=== PATIENT | male | born 1955 | race Caucasian/White ===

== ENCOUNTER → 2016-12-12 | Outpatient (CLI) | payer BC ==
--- NOTE | 2016-12-12 23:15 | US ---
EXAMINATION TYPE: US kidneys/renal and bladder DATE OF EXAM: 12/12/2016 COMPARISON: NONE CLINICAL HISTORY: 61-year-old male with R31.9 Hematuria. Patient states having macroscopic hematuria for 1 week, then went away. No pain. TECHNIQUE: Multiple sonographic images of the kidneys and bladder were obtained. FINDINGS: Right Kidney: 11.6 x 6.4 x 5.5 cm Left Kidney: 11.7 x 6.1 x 6.4 cm No hydronephrosis on either side. The prostate gland appears enlarged with possible calcifications indenting the posterior bladder base . Both ureteral jets are visualized. Post Void Residual Volume: 260.2 mL, abnormal. IMPRESSION: 1. No hydronephrosis. 2. Prostate gland appears enlarged with calcifications slightly indenting the posterior bladder base. Correlate with physical exam findings, PSA values, and patient's symptoms. 3. Postvoid residual bladder volume of 260 ml, which is markedly elevated and compatible with urinary retention.
== END | disposition home or self-care (01) ==
LOC: RADUSMAIN 15:44
PROVIDERS: ATTEND Family Medicine
DX: R31.9 Hematuria, unspecified (principal)
CPT/HCPCS: 76770

== ENCOUNTER → 2018-01-17 | Outpatient (CLI) | payer BC ==
--- NOTE | 2018-01-17 15:06 | CT ---
EXAMINATION TYPE: CT cervical spine wo con DATE OF EXAM: 01/17/2018 COMPARISON: 02/27/2015 HISTORY: Osteoarthosis CT DLP: 619.[address] of the cervical spine was performed with bone and soft tissue window settings submitted . Coronal and sagittal reconstruction is obtained. C2-3: Mild degenerative disc space narrowing. Mild posterocentral disc bulge. No herniation protrusio n or central stenosis. Foramina are patent bilaterally. C3-4: Moderate degenerative disc space narrowing. Posterior disc bulge with encapsulating spur result ing in disc endplate complex. Mild effacement ventral thecal sac. No evidence for herniation protrusi on. Visualized neural foramina are patent bilaterally. C4-5: Moderate to severe degenerative disc space narrowing. Posterior disc bulge. Mild ventral and do rsal spondylosis. No evidence for herniation or protrusion. Degenerative change cervical apophyseal j oints with mild left-sided foraminal encroachment. C5-6:Moderate to severe degenerative disc space narrowing. Posterior disc bulge. Mild ventral and elizabeth federico spondylosis. No evidence for herniation or protrusion. Degenerative change cervical apophyseal jasen ints with mild left-sided foraminal encroachment. C6-7: Severe degenerative disc space narrowing. Posterior disc bulge with encapsulating spur resultin g in disc endplate complex. Mild effacement ventral thecal sac. C7-T1: Within normal limits. Alignment is within normal limits. There is no evidence for fracture or subluxation. IMPRESSION: 1. Multilevel degenerative disc disease and spondylosis. Disc bulging as outlined above as well as fo raminal encroachment.
== END | disposition home or self-care (01) ==
LOC: RADCTMAIN 14:20
PROVIDERS: ATTEND Family Medicine
DX: M50.21 Other cervical disc displacement, high cervical region (principal); M50.30 Other cervical disc degeneration, unspecified cervical region; M47.812 Spondylosis without myelopathy or radiculopathy, cervical region; G89.4 Chronic pain syndrome
CPT/HCPCS: 72125

== ENCOUNTER → 2019-03-17 | Outpatient (CLI) | payer BC ==
--- NOTE | 2019-03-18 11:11 | US ---
EXAMINATION TYPE: US carotid duplex BILAT DATE OF EXAM: 03/17/2019 COMPARISON: NONE CLINICAL HISTORY: I25.10 Atherosclerotic heart disease of [place]. EXAM MEASUREMENTS: RIGHT: Peak Systolic Velocity (PSV) cm/sec ----- Right CCA: 70.3 ----- Right ICA: 82.2 ----- Right ECA: 95.2 ICA/CCA ratio: 1.2 RIGHT: End Diastole cm/sec ----- Right CCA: 21.5 ----- Right ICA: 33.0 ----- Right ECA: 18.7 LEFT: Peak Systolic Velocity (PSV) cm/sec ----- Left CCA: 73.2 ----- Left ICA: 78.2 ----- Left ECA: 67.6 ICA/CCA ratio: 1.1 LEFT: End Diastole cm/sec ----- Left CCA: 19.8 ----- Left ICA: 30.3 ----- Left ECA: 16.9 VERTEBRALS (direction of flow): Right Vertebral: Antegrade Left Vertebral: Antegrade Rhythm: Normal No elevated velocities, no significant stenosis. IMPRESSION: Mild degree of grayscale atheromatous plaquing with no sonographically evident hemodynam ically significant stenosis within either visualized carotid arterial system. Criteria for Assigning % of Stenosis / Diameter reduction (Estimation based on the indirect measurements of the internal carotid artery velocities (ICA PSV). 1. Normal (no stenosis)=ICA PSV < 125 cm/s: ratio < 2.0: ICA EDV<40 cm/s. 2. Less than 50% stenosis=ICA PSV < 125 cm/s: ratio < 2.0: ICA EDV<40 cm/s. 3. 50 to 69% stenosis=ICA PSV of 125 to 230 cm/s: ration 2.0 ? 4.0: ICA EDV 40-100 cm/s. 4. Greater than 70% stenosis to near occlusion= ICA PSV > 230 cm/s: ratio > 4.0: ICA EDV > 100 cm/s. 5. Near occlusion= ICA PSV velocities may be low or undetectable: variable ratio and ICA EDV. 6. Total occlusion=unable to detect flow.
== END | disposition home or self-care (01) ==
LOC: RADUSWWP 13:06
PROVIDERS: ATTEND Family Medicine
DX: I65.22 Occlusion and stenosis of left carotid artery (principal); I10 Essential (primary) hypertension; I67.2 Cerebral atherosclerosis
CPT/HCPCS: 93880

== ENCOUNTER → 2020-04-27 | Outpatient (CLI) | payer BC ==
--- NOTE | 2020-04-27 14:01 | US ---
EXAMINATION TYPE: US kidneys/renal and bladder DATE OF EXAM: 04/27/2020 COMPARISON: US CLINICAL HISTORY: R31.0 HEMATURIA. Hematuria x 5 years EXAM MEASUREMENTS: Right Kidney: 11.9 x 6.6 x 6.9 cm Left Kidney: 12.5 x 5.9 x 6.0 cm Post Void Residual Volume: 29.5 mL Right Kidney: No hydronephrosis or masses seen Left Kidney: No hydronephrosis or masses seen Bladder: multiple, shadowing, and hyperechoic foci seen in posterior bladder and are mobile in LLD po sition. Bilateral Jets seen: yes Normal Post Void Residual: yes IMPRESSION: 1. Shadowing debris within the urinary bladder appears mobile.
== END | disposition home or self-care (01) ==
LOC: RADUSWWP 13:00
PROVIDERS: ATTEND Urology
DX: R93.41 Abnormal radiologic findings on diagnostic imaging of renal pelvis, ureter, or bladder (principal); R31.0 Gross hematuria
CPT/HCPCS: 76770